=== PATIENT | female | born 1985 | race Caucasian/White ===

== ENCOUNTER → 2016-05-14 | Outpatient (CLI) | payer OTHER ==
[~2016-05-14] MED LIST: ACET-1256 PO; AMPH10TA2 PO; BUPR100T4 PO; BUPR150T7 PO; BUSP15TA70 PO; CLON0.5T3 PO; FAMOCHW27 PO; IBUP-1050 PO; LEVO1POW PO; MELA1TAB5 PO; MELO15TA4 PO; OXCA300T PO; PSEU30TA20 PO; SODI1TAB PO; [UNRECOGNIZED DRUG - OTHER] PO; [UNRECOGNIZED DRUG - OTHER] PO; [UNRECOGNIZED DRUG - OTHER] PO
[2016-05-14 12:06] LABS: BASO % 0.6 %; BASO ABS # 0.05 K/uL (0-0.2); COMPLETE YES; EOS % 2.9 %; HEMATOCRIT 38.5 % (37-47); IG% 0.3 %; LYMPH % 40.5 %; LYMPH ABS # 3.12 K/uL (1.2-3.4); MEAN CELL VOLUME 94.1 fL (80-100); MEAN PLATELET VOLUME 9.5 fL (7.4-10.4); MONO % 7.3 %; NEUT % 48.4 %; PLATELET COUNT 349 K/uL (130-400); RED BLOOD COUNT 4.09 M/uL (4.2-5.4)
[2016-05-14 12:54] LABS: ALB/GLOB RATIO 1.5 (0.9-2); ALKALINE PHOSPHATASE 44 U/L (45-117); ALT/SGPT 19 U/L (12-78); AST/SGOT 8 U/L (15-37); CHLORIDE 105 mmol/L (98-107); FERRITIN 135.6 ng/ml (8.0-388.0); POTASSIUM 3.7 mmol/L (3.5-5.1); SODIUM 139 mmol/L (136-145)
[2016-05-14 13:07] LABS: BLOOD UREA NITROGEN 17 mg/dl (7-18); BUN/CREATININE RATIO 21.7 (10-20); CALCIUM 8.9 mg/dl (8.5-10.1); CARBON DIOXIDE 24 mmol/L (21-32); CREATININE 0.77 mg/dl (0.60-1.20); GLUCOSE 81 mg/dl (70-99)
== END | disposition home or self-care (01) ==
LOC: C.LAB 10:39
DX: R53.83 Other fatigue (principal); E55.9 Vitamin D deficiency, unspecified

== ENCOUNTER → 2016-09-08 | Outpatient (CLI) | payer OTHER ==
[2016-09-08 12:28] LABS: BASO % 0.7 %; BASO ABS # 0.04 K/uL (0-0.2); COMPLETE YES; EOS % 2.3 %; HEMATOCRIT 37.7 % (37-47); IG% 0.3 %; LYMPH % 45.5 %; LYMPH ABS # 2.61 K/uL (1.2-3.4); MEAN CELL VOLUME 91.5 fL (80-100); MEAN CORPUSCULAR HEMOGLOBIN 31.6 pg (25-34); MEAN CORPUSCULAR HGB CONC 34.5 g/dl (32-36); MEAN PLATELET VOLUME 8.5 fL (7.4-10.4); NEUT % 44.2 %; PLATELET COUNT 450 K/uL (130-400); RED BLOOD COUNT 4.12 M/uL (4.2-5.4); WHITE BLOOD COUNT 5.74 K/uL (4.8-10.8)
[2016-09-08 12:51] LABS: BLOOD UREA NITROGEN 9 mg/dl (7-18); C-REACTIVE PROTEIN < 0.29 mg/dl (0-0.29); CREATININE 0.57 mg/dl (0.60-1.20); MAGNESIUM 2.4 mg/dl (1.8-2.4); RHEUMATOID FACTOR < 10.0 U/mL (0-15)
[2016-09-08 13:33] LABS: LYME DISEASE AB IGG NEG (NEG); LYME DISEASE AB IGM NEG (NEG)
[2016-09-09 03:25] LABS: RAPID PLASMA REAGIN NONREACTIVE (NONREACT)
[2016-09-10 15:34] LABS: COLLECTION SAMPLE Venous; LEAD BLOOD <1 mcg/dL (<5)
== END | disposition home or self-care (01) ==
LOC: C.LAB 11:10
DX: R41.82 Altered mental status, unspecified (principal)

== ENCOUNTER → 2016-09-16 | Outpatient (CLI) | payer OTHER ==
--- NOTE | 2016-09-20 14:15 | ELECTROENCEPHALOGRAPH REPORT ---
REQUESTING: Dr. Moisés Davenport. CLINICAL DIAGNOSIS: Hallucinations, altered mental status, panic attacks, buzzing sensations in brain. Question seizures. ELECTROENCEPHALOGRAM DIAGNOSIS: Essentially normal during wakefulness. DESCRIPTION OF TRACING: This EEG was performed in the laboratory and was of excellent technical quality. Video analysis of patient movement and behavior was also obtained. Photic stimulation was performed. Hyperventilation was not. Drowsiness and light sleep are not clearly seen. Under these conditions, there is evidence for normal appearing background rhythm in the alpha range of up to 10-11 Hz of maximum frequency and 30 microvolts of maximum amplitude. This is maximum posterior head regions bilaterally symmetrical. Polymorphic mid frequency theta activity of modest voltage is seen over all head regions without clear focal or regional predominance. Anterior head region maximum bilaterally symmetrical low voltage fast activity in the beta range is present. Photic stimulation provokes modest driving response without a photomyogenic or photoparoxysmal component. At no time during the waking tracing is there evidence for potentially epileptogenic activity in the form of polyspike or spike wave bursts, focal sharp waves or focal spikes. INTERPRETATION: This EEG is essentially normal during wakefulness without evidence for focal or generalized encephalopathy and without evidence for potentially epileptogenic activity.
== END | disposition home or self-care (01) ==
LOC: C.NEUR 08:40
DX: R41.82 Altered mental status, unspecified (principal); R44.3 Hallucinations, unspecified; G93.40 Encephalopathy, unspecified

== ENCOUNTER → 2016-09-26 | Day surgery (SDC) | payer OTHER ==
[2016-09-26] VITALS (12 sets, daily range): BP systolic 83–120; BP diastolic 49–75; PULSE 70–90; TEMP 36.9–37.2; O2SAT 97–100; Ht 154.9 cm; Wt 53.0 kg
[~2016-09-26] VITALS: Ht 154.9 cm; Wt 53.0 kg
[~2016-09-26] MED LIST changes: +ACETAMINOPHEN 500 MG TAB PO PRN
--- NOTE | 2016-09-26 10:33 | Discharge Instructions ---
Discharge Instructions Procedure Procedure Date: September 26, 2016. Reason for visit: Hallucinosis; Encephalopathy; Change In Mental Sta. Discharge Discharge Date: September 26, 2016. Discharge Diagnosis: Change in mental status, hallucinosis, encephalopathy Instructions Activity Recommendations: 1 Day-May resume regular activity, 48 Hours of decreased exertion, 1 Day with no exercise/sex/sports, 1 Day with no driving/ machine use Return to School/Work: limitations (light activity x 48 hours) Recommended Home Diet: Resume Previous Diet Provider Instructions: Fluoroscopic guided lumbar puncture was performed at the L3-L4 interlaminar space. Opening pressures were assessed and then approximately 10 cc of clear, colorless CSF was removed and sent for laboratory analysis. The procedure was well tolerated and without immediate complication. Allergies Coded Allergies: Clarithromycin (Verified Allergy, Intermediate, RASH, 09/26/16) Sulfamethoxazole w/Trimethoprim (Verified Allergy, Intermediate, HIVES, ) Fluticasone (Verified Adverse Reaction, Unknown, HYPER, PARANOID, 09/26/16) Salmeterol (Verified Adverse Reaction, Unknown, HYPER, PARANOID, 09/26/16) Uncoded Allergies: ANTIBIOTICS (Adverse Reaction, Mild, "SENSITIVITY TO THEM", 01/09/16) Jimbo Richardson Recommendations: Call your doctor if: * Temperature above 101 degrees * Pain not relieved by pain medicine ordered * There is increased drainage or redness from any incision * You have any unanswered questions or concerns. Your Doctors Instructions noted above were prepared by provider Harish Deluna. Patient Signature Section: Patient Instructions Signature Page Emi Paz Patient (or Guardian) Signature/Date: I have read and understand the instructions given to me by my caregivers. Caregiver/RN/Doctor Signature/Date: The above-named patient and/or guardian has received patient instructions on this date. + Original Patient Signature Page (only) stays with chart. Please make copy for patient.
--- NOTE | 2016-09-26 10:52 | DIAGNOSTIC IMAGING REPORT ---
FLUOROSCOPIC GUIDED LUMBAR PUNCTURE CLINICAL HISTORY: Hallucinations. Encephalopathy. Change in mental status. PROCEDURE: The risks, benefits, and alternatives to the procedure is discussed with the patient who voiced understanding. Written informed consent was obtained. The patient was placed prone on the fluoroscopy table. The lower back was prepped and draped in the usual sterile fashion. 1% lidocaine was used for local anesthesia. A 22-gauge spinal needle was inserted into the L3-L4 interlaminar space. Opening pressures were acquired and approximately 10 cc of clear colorless cerebrospinal fluid was then removed and sent for laboratory analysis. The patient tolerated the procedure well. There were no immediate complications. The patient was then transported to the medical treatment unit for further observation. Fluoroscopy time: 0.1 minutes. Opening pressures: 16 cm of water IMPRESSION: Fluoroscopic guided lumbar puncture with removal of approximately 10 cc of cerebrospinal fluid. There were no immediate complications. Electronically signed by: Harish Deluna M.D. 09/26/2016 10:50 AM Dictated Date/Time: 09/26/2016 10:49 AM
[2016-09-26 11:03] LABS: CSF TOTAL PROTEIN 30.8 mg/dl (15.0-45.0)
[2016-09-26 11:52] LABS: CSF APPEARANCE CLEAR; CSF COLOR COLORLESS; CSF XANTHOCHROMIC NO XANTHOCHROMIA
[2016-09-28 21:27] LABS: LYME DNA PCR CSF OR SYNOVIAL Not detected (Not Detected); LYME DNA SOURCE CSF
== END | disposition home or self-care (01) ==
LOC: C.ACU 08:29
DX: G93.40 Encephalopathy, unspecified (principal); R44.3 Hallucinations, unspecified

== ENCOUNTER 2016-09-27 16:24 | Emergency (ER) | payer OTHER ==
[~2016-09-27] VITALS: Ht 162.6 cm; Wt 53.4 kg
[~2016-09-27 16:24] MED LIST changes: -ACETAMINOPHEN 500 MG TAB PO PRN; -BUSP15TA70 PO; -FAMOCHW27 PO; -LEVO1POW PO; -[UNRECOGNIZED DRUG - OTHER] PO; -[UNRECOGNIZED DRUG - OTHER] PO
[2016-09-27 16:30] VITALS: TEMP 36.8; Ht 162.6 cm; Wt 53.4 kg
[2016-09-27] MEDS ORDERED: PROCHLORPERAZINE 5 MG/ML 2 ML VIAL IV STA (16:44)
[2016-09-27] MEDS ORDERED: DiphenhydrAMINE HCL 50 MG/ML VIAL IV STA (16:44)
[2016-09-27] MEDS ORDERED: SODIUM CHLORIDE 0.9% 1000ML 1,000 ML IV STA (16:44)
--- NOTE | 2016-09-27 16:52 | EMERGENCY ROOM VISIT NOTE ---
History First contact with patient: 16:33 Chief Complaint: HEADACHE Stated Complaint: SPINAL TAP DONE//BAD HEADACHE History of Present Illness The patient is a 30 year old female who presents to the Emergency Room via private vehicle with complaints of "spinal tap done/bad headache". The patient states that yesterday around 10 AM she had a fluoroscopically guided lumbar puncture performed here. She states that she was doing well throughout the day , and only took Tylenol. She notes that this morning she woke up, and went to make breakfast when she developed an excruciating headache on the top of her head radiating into the back of her head. This is the worse headache of her life. She notes that it is worse when leaning forward and standing. She has to lay down to alleviate the pain. She did have an episode of blurred vision, and minor speech troubles earlier today of which have resolved. There is minimal nausea associated with this today. She states she called her family doctor, Dr. Davenport, and his office said to go to the emergency room. She notes that every time she tries to sit up her head is pounding. She denies any fevers , chest pain, shortness of breath, abdominal pain. There is no unilateral weakness. The patient thinks that she had a brief episode earlier today when she had speech difficulties. There is associated photophobia and phonophobia. Review of Systems A complete 10-point Review of Systems was discussed with the patient, with pertinent positives and negatives listed in the History of Present Illness. All remaining Review of Systems questions can be considered negative unless otherwise specified. Past Medical/Surgical History Medical Problems: (1) Colon polyp (2) IBS (irritable bowel syndrome) (3) Stomach problems (4) UTI (urinary tract infection) Family History Asthma Social History Smoking Status: Never Smoker Alcohol Use: none Drug Use: none Marital Status: single Housing Status: lives alone Occupation Status: employed Current/Historical Medications Scheduled Acetaminophen (Tylenol), 1,000 MG PO prn Amphetamine-Dextroamphetamine 10MG (Adderall 10MG), 2.5 MG PO BID Bupropion Hcl (Wellbutrin Sr), 150 MG PO QAM Bupropion Hcl (Wellbutrin), 100 MG PO QPM Meloxicam (Mobic), 1 TAB PO DAILY Oxcarbazepine (Trileptal), 300 MG PO QID Pseudoephedrine (Sudafed), 30 MG PO DIRECTED Sodium Chloride (Sodium Chloride), 360 MG PO DAILY [De-Raj], 2 TAB PO DIRECTED Scheduled PRN Clonazepam (Klonopin), 0.25 MG PO AMPM PRN for Anxiety/Insomnia Ibuprofen (Advil), 400 MG PO Q6 PRN for Pain Allergies Coded Allergies: Clarithromycin (Verified Allergy, Intermediate, RASH, 09/27/16) Sulfamethoxazole w/Trimethoprim (Verified Allergy, Intermediate, HIVES, ) Fluticasone (Verified Adverse Reaction, Unknown, HYPER, PARANOID, 09/27/16) Salmeterol (Verified Adverse Reaction, Unknown, HYPER, PARANOID, 09/27/16) Uncoded Allergies: ANTIBIOTICS (Adverse Reaction, Mild, "SENSITIVITY TO THEM", 01/09/16) Physical Exam Vital Signs Date Time Temp Pulse Resp B/P Pulse Ox O2 Delivery O2 Flow Rate FiO2 09/27/16 20:17 81 18 106/62 97 Room Air 09/27/16 18:54 60 90/56 09/27/16 16:30 36.8 111 20 147/85 96 Room Air Physical Exam VITAL SIGNS - Vital signs and nursing notes were reviewed. Patient is afebrile , hypertensive at 1 4735, tachycardic at a rate of 111 bpm, and is saturating well on room air 96%. GENERAL -30-year-old female appearing her stated age who is in no acute distress. Communicates well with provider and answers questions appropriately. SKIN - Without rashes. No petechial rashes. HEAD - NC/AT. EYES - PERRL with EOMI bilaterally. Sclera anicteric. Palpebral conjunctiva pink and moist with no injection noted. No hyphema. EARS - No deformities of external structures noted on gross examination bilaterally. No pain elicited with palpation of the tragus bilaterally. External auditory canals without discharge or otorrhea. Tympanic membranes pearly moura without retraction or bulging. No fluid or purulent material visualized behind the TM. Handle of malleus, umbo, cone of light, pars tensa/ flaccid all easily visualized. No hemotympanum. NOSE - Midline and without cyanosis. No epistaxis or purulent drainage noted. Septum midline without deviation or septal hematoma noted. MOUTH/OROPHARYNX - Without perioral cyanosis. Buccal mucosa pink and moist and without leukoplakia. Tongue midline with equal elevation of palate bilaterally. No tonsillar hypertrophy, erythema, or exudates noted. Fair dentition noted. NECK - Neck with FROM. No lymphadenopathy noted. No nuchal rigidity. No meningismus. LUNGS - Chest wall symmetric without accessory muscle use, intercostals retractions, or central cyanosis. Normal vesicular breath sounds CTA B/L. No wheezes, rales, or rhonchi appreciated. CARDIAC - RRR with S1/S2. No murmur, rubs, or gallops appreciated. EXTREMITIES - No clubbing or peripheral cyanosis. No pretibial edema present. +5 /5 strength noted in UE/LE bilaterally. NEUROLOGIC - Cranial nerves II through XII grossly intact. Sensory intact to light touch throughout. Patellar reflexes +2/4. PSYCH - Pt is very pleasant and interacts well with examiner. Medical Decision & Procedures Laboratory Results 09/27/16 17:00 Red Blood Count 4.19, Mean Corpuscular Volume 92.8, Mean Corpuscular Hemoglobin 31.3, Mean Corpuscular Hemoglobin Concent 33.7, Mean Platelet Volume 8.8, Neutrophils (%) (Auto) 48.2, Lymphocytes (%) (Auto) 42.1, Monocytes (%) (Auto) 7.5, Eosinophils (%) (Auto) 1.4, Basophils (%) (Auto) 0.6, Neutrophils # (Auto) 4.03, Lymphocytes # (Auto) 3.53, Monocytes # (Auto) 0.63, Eosinophils # (Auto) 0.12, Basophils # (Auto) 0.05 09/27/16 17:00 Test 09/27/16 17:00 White Blood Count 8.38 K/uL (4.8-10.8) Red Blood Count 4.19 M/uL (4.2-5.4) Hemoglobin 13.1 g/dL (12.0-16.0) Hematocrit 38.9 % (37-47) Mean Corpuscular Volume 92.8 fL (80-100) Mean Corpuscular Hemoglobin 31.3 pg (25-34) Mean Corpuscular Hemoglobin Concent 33.7 g/dl (32-36) Platelet Count 363 K/uL (130-400) Mean Platelet Volume 8.8 fL (7.4-10.4) Neutrophils (%) (Auto) 48.2 % Lymphocytes (%) (Auto) 42.1 % Monocytes (%) (Auto) 7.5 % Eosinophils (%) (Auto) 1.4 % Basophils (%) (Auto) 0.6 % Neutrophils # (Auto) 4.03 K/uL (1.4-6.5) Lymphocytes # (Auto) 3.53 K/uL (1.2-3.4) Monocytes # (Auto) 0.63 K/uL (0.11-0.59) Eosinophils # (Auto) 0.12 K/uL (0-0.5) Basophils # (Auto) 0.05 K/uL (0-0.2) RDW Standard Deviation 41.8 fL (36.4-46.3) RDW Coefficient of Variation 12.4 % (11.5-14.5) Immature Granulocyte % (Auto) 0.2 % Immature Granulocyte # (Auto) 0.02 K/uL (0.00-0.02) Anion Gap 8.0 mmol/L (3-11) Est Creatinine Clear Calc Drug Dose 83.8 ml/min Estimated GFR () 110.5 Estimated GFR (Non- 95.4 BUN/Creatinine Ratio 8.6 (10-20) Calcium Level 8.5 mg/dl (8.5-10.1) Total Bilirubin 0.4 mg/dl (0.2-1) Aspartate Amino Transf (AST/SGOT) 9 U/L (15-37) Alanine Aminotransferase (ALT/SGPT) 20 U/L (12-78) Alkaline Phosphatase 57 U/L (45-117) Total Protein 7.7 gm/dl (6.4-8.2) Albumin 4.6 gm/dl (3.4-5.0) Globulin 3.1 gm/dl (2.5-4.0) Albumin/Globulin Ratio 1.5 (0.9-2) Human Chorionic Gonadotropin, Qual NEG (NEG) Medications Administered Medications (Trade) Dose Ordered Sig/Rush Route Start Time Stop Time Status Last Admin Dose Admin Diphenhydramine HCl (Benadryl Inj) 25 mg NOW STAT IV 09/27/16 16:44 09/27/16 16:47 DC 09/27/16 17:12 25 MG Prochlorperazine Edisylate 5 mg 5 mg NOW STAT IV 09/27/16 16:44 09/27/16 16:47 DC 09/27/16 17:12 5 MG Sodium Chloride (Nss 1000ml) 1,000 ml @ 999 mls/hr Q1H1M STAT IV 09/27/16 16:44 09/27/16 17:44 DC 09/27/16 17:12 999 MLS/HR Potassium Chloride (Klor-Con M10) 20 meq NOW STAT PO 09/27/16 18:07 09/27/16 18:08 DC 09/27/16 19:00 20 MEQ Ondansetron HCl (Zofran Inj) 4 mg NOW STAT IV 09/27/16 19:05 09/27/16 19:06 DC 09/27/16 19:05 4 MG Medical Decision Patient was seen and evaluated as above. After obtaining a thorough history and physical examination IV access was initiated and the above workup was performed. Patient is status post one day of a fluoroscopic guided spinal tap at the L3-L4 level. This was successfully performed and revealed a clear colorless fluid. The patient tolerated the procedure well subjectively. She presents with what appears to be a post-spinal tap headache. It is positional in nature. There are no neurologic deficits appreciated upon examination. At this time I do believe it is appropriate to consult anesthesiology regarding a blood patch. Patient was very receptive to this idea. I don't believe any imaging of the head at this time is warranted, she had an MRI performed 1 week ago and is neurologically intact with symptoms classically associated with a post spinal puncture headache. She did want something for her pain, therefore given her allergies she was provided with 25 mg of Benadryl intravenously as well as 5 mg of Compazine intravenously. I did elect to not provide any Toradol as I did not want to create any increased bleeding risk. The patient was also hydrated with a liter of normal saline. Case was discussed extensively with my attending. The decision was then made to consult anesthesiology regarding a blood patch. I spoke with Dr. John Hwang MD, who came to personally evaluate the patient. I was then informed by him that the patient declined the blood patch, as the patient stated that she wanted to wait a few more days to see if her headache subsided. I do believe this is reasonable. In review of the patient's lab work, no leukocytosis, or blood cell count low at 4.19, hemoglobin 13.1, potassium was low at 3.1, AST low at 9. test negative. Patient was reevaluated and noted that she had difficulty swallowing, toes of her mouth was swelling shut and was very thirsty. The mother informed me that she personally had an allergy to Compazine in the past, however the patient had never had Compazine before. The patient was offered steroids, however we did decide to not administer these. She was observed, and her pulse ox remained stable. She was reevaluated and is feeling much better. I was informed by staff here, the patient felt stable for discharge, had slept and felt like a new person. Patient was able sit up without any pain. There is no nuchal rigidity. She clinically is nontoxic in appearance. I did evaluate her airway many times through visual inspection there is no evidence of edema or airway compromise. The patient was educated upon importance of follow-up, was educated upon worrisome symptoms in which to return, had questions prior to discharge and was discharged home in good condition. Is imperative that the patient was noted to be hypotensive during one of her vital rechecks, however prior to discharge she was found to be stable. I did discuss with the patient and parents regarding imaging of the head. She had an MRI one week ago. The headache is positional. I informed him the radiation risk of a CT scan and threw joint decision making CT scan was refrained. In the evaluation and treatment of this patient, the following differential diagnoses were considered: Migraine Headache, Intracranial Hemorrhage, Subdural Hematoma, Subarachnoid Hemorrhage, Cerebral Aneurysm, Temporal/Giant Cell Arteritis, Tension Headache, Meningitis, Encephalitis, or Hydrocephalus. Impression Primary Impression: Spinal puncture headache Departure Information Dispostion Home / Self-Care Condition GOOD Referrals No Doctor, Assigned (PCP) Patient Instructions [facility] Additional Instructions You were seen in the emergency Department for a headache following a spinal tap. You have respected declined a blood patch as we discussed. If you would decide that you would like this in the future, please return to the emergency department. Please rest and drink plenty of fluids. If you would develop a fever, chills, any new/concerning symptoms please return immediately. Please consider Compazine and medication you should add to your allergy list. Please return to the emergency department with any new/concerning symptoms. Thank you for your time. Please follow-up with your family doctor soon as possible regarding today's visit.
[2016-09-27 17:21] LABS: BASO % 0.6 %; BASO ABS # 0.05 K/uL (0-0.2); COMPLETE YES; EOS % 1.4 %; HEMATOCRIT 38.9 % (37-47); IG% 0.2 %; LYMPH % 42.1 %; LYMPH ABS # 3.53 K/uL (1.2-3.4); MEAN CELL VOLUME 92.8 fL (80-100); MEAN CORPUSCULAR HEMOGLOBIN 31.3 pg (25-34); MEAN CORPUSCULAR HGB CONC 33.7 g/dl (32-36); MEAN PLATELET VOLUME 8.8 fL (7.4-10.4); MONO % 7.5 %; NEUT % 48.2 %; PLATELET COUNT 363 K/uL (130-400); RED BLOOD COUNT 4.19 M/uL (4.2-5.4); WHITE BLOOD COUNT 8.38 K/uL (4.8-10.8)
[2016-09-27 17:42] LABS: PREG INTERNAL NEGATIVE QC NEG CLEAR BACKGROUND; PREG INTERNAL POSITIVE QC POS CONTROL LINE
[2016-09-27 17:45] LABS: BUN/CREATININE RATIO 8.6 (10-20); CALCIUM 8.5 mg/dl (8.5-10.1); CREATININE 0.82 mg/dl (0.60-1.20); POTASSIUM 3.1 mmol/L (3.5-5.1)
[2016-09-27 17:47] LABS: ALB/GLOB RATIO 1.5 (0.9-2)
[2016-09-27] MEDS ORDERED: POTASSIUM CHLORIDE 10 MEQ TABCR PO STA (18:07)
[2016-09-27] MEDS ORDERED: ONDANSETRON INJ 2 MG/ML 2 ML VIAL IV STA (19:05)
[2016-09-27 20:17] VITALS: BP 106/62; PULSE 81; O2SAT 97
--- NOTE | 2016-09-28 01:41 | Progress Note ---
Progress Note Date of Service September 28, 2016. Progress Note I was asked to see the patient in the ED to evaluate for PDPH and possible epidural blood patch. Patient had an LP under fluroscopy with a 22g cutting needle 1 day prior to evaluation. The LP was done to evaluate chronic symptoms of fatigue, possible cyclic fevers, and depression not relieved by medications. She began experiencing a headache the following morning which was severe upon standing and completely abated when laying supine. In addition the patient denies any red flag symptoms such as continued fevers, chills, weakness, numbness, incontinence, urinary retention, or visual changes. Her CSF studies showed normal protein and glucose and cultures are thus far negative. The remainder of her blood work was unremarkable. Basic neuro exam showed no concerning neurologic findings. I feel the patient does have symptoms related to a PDPH. She was offered conservative treatment here in the ED. I explained that definitive treatment with EBP has a high success rate with low incidence of recurrence but also explained the relatively low risks such as pain with the procedure, failure to improve symptoms, worsening headache with a larger dural puncture, and remote chance of serious bleeding or infection. The patient specifically asked about the natural history of PDPH and I explained while most cases were likely to improve within days to weeks with conservative treatment, occasionally symptoms can last for months or even longer. After discussion with her parents, the patient decided to continue conservative treatment and return for blood patch in a few days if she is not feeling better. We will be happy to see her for blood patch in the future if she is not improving. Thank you for the consult.
== END 2016-09-27 20:36 | disposition home or self-care (01) ==
LOC: C.EDB 16:26 → C.EDA 20:36
DX: G97.1 Other reaction to spinal and lumbar puncture (principal); K58.9 Irritable bowel syndrome, unspecified; Z86.010 Personal history of colon polyps; Z87.440 Personal history of urinary (tract) infections; Z87.19 Personal history of other diseases of the digestive system; Z79.899 Other long term (current) drug therapy; Z88.2 Allergy status to sulfonamides; Z88.3 Allergy status to other anti-infective agents; Z88.8 Allergy status to other drugs, medicaments and biological substances; Z82.5 Family history of asthma and other chronic lower respiratory diseases

== ENCOUNTER → 2016-12-12 | Outpatient (CLI) | payer OTHER ==
[~2016-12-12] MED LIST changes: -MELA1TAB5 PO
== END | disposition home or self-care (01) ==
LOC: C.LABSPEC 14:59
DX: J02.9 Acute pharyngitis, unspecified (principal)

== ENCOUNTER → 2017-06-08 | Outpatient (CLI) | payer OTHER ==
[2017-06-08 14:43] LABS: BASO % 0.3 %; BASO ABS # 0.02 K/uL (0-0.2); EOS % 0.5 %; EOS ABS # 0.03 K/uL (0-0.5); HEMATOCRIT 39.1 % (37-47); HEMOGLOBIN 13.1 g/dL (12.0-16.0); IG# 0.03 K/uL (0.00-0.02); LYMPH % 22.8 %; LYMPH ABS # 1.46 K/uL (1.2-3.4); MEAN CELL VOLUME 94.2 fL (80-100); MEAN CORPUSCULAR HEMOGLOBIN 31.6 pg (25-34); MEAN CORPUSCULAR HGB CONC 33.5 g/dl (32-36); MEAN PLATELET VOLUME 9.4 fL (7.4-10.4); MONO % 5.3 %; MONO ABS # 0.34 K/uL (0.11-0.59); NEUT % 70.6 %; NEUT ABS # 4.52 K/uL (1.4-6.5); PLATELET COUNT 347 K/uL (130-400); RED CELL DISTRIBUTION WIDTH CV 12.9 % (11.5-14.5); RED CELL DISTRIBUTION WIDTH SD 44.1 fL (36.4-46.3)
[2017-06-12 15:25] LABS: ANA SCREEN TC 249X NEGATIVE (NEGATIVE)
== END | disposition home or self-care (01) ==
LOC: C.LAB 13:21
DX: L08.9 Local infection of the skin and subcutaneous tissue, unspecified (principal); E55.9 Vitamin D deficiency, unspecified

== ENCOUNTER → 2017-08-22 | Outpatient (CLI) | payer OTHER ==
[~2017-08-22] MED LIST changes: +MELO-84 PO; -MELO15TA4 PO
== END | disposition home or self-care (01) ==
LOC: C.LABSPEC 14:29
DX: J02.9 Acute pharyngitis, unspecified (principal)

== ENCOUNTER → 2017-11-30 | Outpatient (CLI) | payer OTHER ==
[~2017-11-30] MED LIST changes: -CLON0.5T3 PO; -OXCA300T PO; -SODI1TAB PO; +VITACAP26 PO; +[UNRECOGNIZED DRUG - OTHER] PO
== END | disposition home or self-care (01) ==
LOC: C.LABSPEC 15:06
DX: J03.90 Acute tonsillitis, unspecified (principal)

== ENCOUNTER → 2017-12-14 | Outpatient (CLI) | payer OTHER | END | disposition home or self-care (01) | LOC: C.LABSPEC 15:01 | DX: J03.91 Acute recurrent tonsillitis, unspecified (principal) ==